=== PATIENT | female | born 1995 | race Hispanic/Latino ===

== ENCOUNTER 2018-05-21 15:34 | Emergency (ER) | payer BC ==
[~2018-05-21] VITALS: Ht 149.9 cm; Wt 57.2 kg
[2018-05-21] MEDS ORDERED: PROMETHAZINE HCL (IM) 25 MG/ML VIAL IM ONE (16:15)
== END 2018-05-21 18:08 | disposition home or self-care (01) ==
LOC: FSED 15:34
DX: O21.0 Mild hyperemesis gravidarum (principal)
CPT/HCPCS: 99283; J2550